=== PATIENT | male | born 1950 | race Caucasian/White ===

== ENCOUNTER 2018-09-28 19:51 | Emergency (ER) | payer OTHER ==
[~2018-09-28] VITALS: Ht 182.9 cm; Wt 106.6 kg
[2018-09-28 20:22] LABS: URINE BILIRUBIN NEGATIVE (Negative); URINE BLOOD 3+ (Negative); URINE CLARITY CLEAR; URINE COLOR RED; URINE GLUCOSE-RANDOM* 2+ (Negative); URINE KETONES TRACE (Negative); URINE LEUKOCYTES-REFLEX TRACE (Negative); URINE NITRITE-REFLEX NEGATIVE (Negative); URINE PROTEIN (DIPSTICK) 2+ (Negative); URINE UROBILINOGEN 0.2 E.U./dl (0.2-1.0)
[2018-09-28 20:34] LABS: AMORPHOUS URATES Moderate /LPF (None Seen); BACTERIA-REFLEX None Seen /HPF (None Seen); CASTS None Seen /LPF (None Seen); SQUAMOUS 0-3 Few /LPF (0-3); URINE RBC >20 Many /HPF (0-2); URINE WBC-REFLEX 6-15 Few /HPF (0-5)
[2018-09-28 20:39] LABS: ABSOLUTE NEUTROPHILS 8.3 thou/uL (1.4-8.2); BASOPHILS 0.7 % (0.0-2.0); EOSINOPHILS 2.7 % (0.0-3.0); HEMATOCRIT 43.4 % (42.0-52.0); HEMOGLOBIN 15.1 gm/dL (14.0-18.0); LYMPHOCYTES 27.2 % (24.0-44.0); MCH 30.7 pg (26.0-34.0); MCHC 34.8 g/dL (28.0-37.0); MCV 88.3 fL (80.0-100.0); MONOCYTES 6.2 % (1.0-8.0); PLATELET COUNT 241 thou/uL (150-400); POLYS 63.2 % (36.0-66.0); RBC 4.92 mil/uL (4.50-6.00); RDW 13.3 % (10.5-14.5); WBC 13.2 thou/uL (4.0-11.0)
[2018-09-28 20:42] LABS: CALCIUM 8.7 mg/dL (8.5-10.1); CREATININE 1.3 mg/dL (0.7-1.3); POTASSIUM 3.8 mmol/L (3.5-5.1)
[2018-09-28] MEDS ORDERED: PRILOSEC 20 MG20 MG PO (21:45)
[2018-09-28] MEDS ORDERED: LASIX 20 MG TAB20 MG PO (21:46)
[2018-09-28] MEDS ORDERED: ASPIRIN EC81 M1 PO (21:46)
[2018-09-28] MEDS ORDERED: ZETIA10 MG PO (21:46)
[2018-09-28] MEDS ORDERED: LOSARTAN POTAS100 MG PO (21:47)
[2018-09-28] MEDS ORDERED: LIPITOR 40 MG T40 M1 PO (21:49)
[2018-09-28] MEDS ORDERED: TOPROL XL25 MG PO (21:49)
[2018-09-28] MEDS ORDERED: FISH OIL 1,001000 M2 PO (21:50)
[2018-09-28] MEDS ORDERED: CENTRUM SILVER1 EAC4 PO (21:51)
[2018-09-28] MEDS ORDERED: BACTRIM DS TAB1 EACH PO (21:55)
[2018-09-28 22:07] VITALS: BP 108/74
== END 2018-09-28 22:08 | disposition home or self-care (01) ==
LOC: ER 19:51
PROVIDERS: Physician Assistant; Student in an Organized Health Care Education/Training Program
DX: N39.0 Urinary tract infection, site not specified (principal); I10 Essential (primary) hypertension; F17.210 Nicotine dependence, cigarettes, uncomplicated; Z95.1 Presence of aortocoronary bypass graft; Z79.899 Other long term (current) drug therapy; Z88.0 Allergy status to penicillin

== ENCOUNTER → 2019-12-16 | Outpatient (CLI) | payer OTHER ==
[~2019-12-16] MED LIST: ASPIRIN EC81 M1 PO; BACTRIM DS TAB1 EACH PO; CENTRUM SILVER1 EAC4 PO; FISH OIL 1,001000 M2 PO; LASIX 20 MG TAB20 MG PO; LIPITOR 40 MG T40 M1 PO; LOSARTAN POTAS100 MG PO; PRILOSEC 20 MG20 MG PO; TOPROL XL25 MG PO; ZETIA10 MG PO
== END ==
LOC: SJCVC 11:13
PROVIDERS: ATTEND Internal Medicine Cardiovascular Disease
DX: I25.10 Atherosclerotic heart disease of native coronary artery without angina pectoris (principal); I25.5 Ischemic cardiomyopathy; I10 Essential (primary) hypertension; E78.5 Hyperlipidemia, unspecified; I65.23 Occlusion and stenosis of bilateral carotid arteries; F17.210 Nicotine dependence, cigarettes, uncomplicated; Z95.1 Presence of aortocoronary bypass graft; Z79.899 Other long term (current) drug therapy